=== PATIENT | male | born 1955 | race Caucasian/White ===

== ENCOUNTER 2018-10-15 21:32 | Emergency (ER) | payer BC ==
[~2018-10-15] VITALS: Ht 167.6 cm; Wt 78.0 kg
[2018-10-15] MEDS ORDERED: ZESTORETIC 20-1 EAC3 PO (22:32)
[2018-10-15] MEDS ORDERED: LAMICTAL100 MG PO (22:33)
[2018-10-15] MEDS ORDERED: ARIPIPRAZOLE2 MG PO (22:34)
[2018-10-15] MEDS ORDERED: FLOMAX0.4 MG PO (22:34)
[2018-10-15] MEDS ORDERED: PAXIL10 MG PO (22:34)
[2018-10-15] MEDS ORDERED: AMPHETAMINE-DEXTROAM PO (22:37)
[2018-10-15 22:43] LABS: BASOPHILS 0.4 % (0.0-2.0); HEMATOCRIT 45.5 % (42.0-52.0); HEMOGLOBIN 15.2 gm/dL (14.0-18.0); MCH 29.4 pg (26.0-34.0); MCHC 33.5 g/dL (28.0-37.0); MCV 87.7 fL (80.0-100.0); MONOCYTES 7.9 % (1.0-8.0); PLATELET COUNT 328 thou/uL (150-400); POLYS 76.7 % (36.0-66.0); RBC 5.19 mil/uL (4.50-6.00); RDW 14.4 % (10.5-14.5)
[2018-10-15 22:59] LABS: ANION GAP 12 mmol/L (7-16); BUN 57 mg/dL (7-18); CALCIUM 10.3 mg/dL (8.5-10.1); CHLORIDE 95 mmol/L (98-107); CO2 27 mmol/L (21-32); CREATININE 4.3 mg/dL (0.7-1.3); GLUCOSE 98 mg/dL (74-106); POTASSIUM 4.4 mmol/L (3.5-5.1); SODIUM 134 mmol/L (136-145)
[2018-10-15 23:09] LABS: SGOT 18 U/L (15-37); SGPT 30 U/L (30-65); TOTAL BILIRUBIN 0.3 mg/dL (<0.1-1.0); TOTAL PROTEIN 7.8 g/dL (6.4-8.2); TROPONIN-I <0.06 ng/mL (<0.06)
[2018-10-16 00:01] LABS: URINE BILIRUBIN NEGATIVE (Negative); URINE BLOOD TRACE (Negative); URINE CLARITY CLEAR; URINE COLOR YELLOW; URINE GLUCOSE-RANDOM* NEGATIVE (Negative); URINE KETONES NEGATIVE (Negative); URINE LEUKOCYTES-REFLEX TRACE (Negative); URINE NITRITE-REFLEX NEGATIVE (Negative); URINE PROTEIN (DIPSTICK) NEGATIVE (Negative); URINE UROBILINOGEN 0.2 E.U./dl (0.2-1.0)
[2018-10-16 00:08] LABS: AMP/METHAMP POSITIVE (Negative); BARBITURATES Negative (Negative); BENZODIAZEPINES Negative (Negative); COCAINE Negative (Negative); METHADONE Negative (Negative); OPIATES Negative (Negative); PCP Negative (Negative)
[2018-10-16 00:52] VITALS: BP 135/83
--- NOTE | 2018-10-16 08:35 | EKG ---
[place] [address] [facility] [place] [address] ELECTROCARDIOGRAM REPORT Name: DAVID AQUINO [facility] [id number] ������������������ Admission: 10/15/18 ������������������ Attend Phys: Discharge: 10/16/18 ������������������ Date of : 57 Report #: [id number] ����������������������������������������������������������������� [id number] THIS REPORT FOR: //name// [facility] ED Test Date: 2018-10-15 Test Time: 21:45:49 Pat Name: DAVID AQUINO Department: Room: Gender: [employer] Professor: DAPHNE : 1955 Requested By: Lisa Esposito Order Number: [id number] MD: Seth Jiang Measurements Intervals [place] Rate: 114 P: 81 TN: 149 QRS: 68 QRSD: 139 T: 58 QT: 347 QTc: 478 Interpretive Statements Sinus tachycardia Right atrial enlargement Right bundle branch block No previous ECG available for comparison Electronically Signed On 10-16-2018 8:34:48 CDT by Seth Jiang [email or web address] ��������������������������������������������� <ELECTRONICALLY SIGNED> ���������������������������������������� By: Seth Jiang MD ��������������������������������������������� 10/16/18 [id number] MD ANN MARIE Mooney
[2018-10-17] MEDS ORDERED: ADDERALL 30 MG30 MG PO (00:53)
== END 2018-10-16 00:54 | disposition home or self-care (01) ==
LOC: ER 21:32
PROVIDERS: Student in an Organized Health Care Education/Training Program
DX: N17.9 Acute kidney failure, unspecified (principal); R53.83 Other fatigue; F17.210 Nicotine dependence, cigarettes, uncomplicated; I10 Essential (primary) hypertension

== ENCOUNTER 2018-10-16 21:06 | Inpatient (IN) | payer BC ==
[~2018-10-16] VITALS: Ht 167.6 cm; Wt 73.5 kg
--- NOTE | ~2018-10-16 | HC ---
[facility] [place] [address] [place] [address] CONSULTATION Name: DAVID AQUINO Room #: 427-P [facility] IN M.R.#: [id number] Admission: 10/16/18 ������������������ Attend Phys: Coleman Gray MD Discharge: ������������������ Date of : 57 Report #: [id number] THIS REPORT FOR: //name// CC: FAM physician/PCP Coleman Gray DATE OF SERVICE: 10/17/2018 NEPHROLOGY CONSULTATION ATTENDING PHYSICIAN: Dr. Gray. REASON FOR CONSULTATION: Elevated creatinine. HISTORY OF PRESENT ILLNESS: This patient, with a possible history of CKD and hypertension, developed nausea, dizziness, weakness, fatigue and some shortness of air over the last several days. He came to the Emergency Room, had a creatinine of 4.3, then came back with a creatinine of 4.8. He takes Flomax for some history of urinary retention, has felt poorly and has not been eating or drinking well in the last few days. PAST MEDICAL HISTORY: He has a psychiatric disorder, possibly bipolar as well as the hypertension. He has also had atrial fibrillation and has had ablations x 2. HOME MEDICATIONS: Include lisinopril and hydrochlorothiazide 20/12.5 one daily, Lamictal 100 mg at bedtime, aripiprazole 2 mg daily, Flomax 0.4 mg at bedtime, Paxil 30 mg daily, amphetamine and dextroamphetamine combination 30 mg t.i.d. SOCIAL HISTORY: He smokes cigars and also occasionally marijuana. No other drug use. Works at a [employer]. REVIEW OF SYSTEMS: GENERAL: He has been feeling poorly. EYES: His vision is reasonably good. ENT: Hearing okay, swallows okay. Denies mouth sores. ENDOCRINE: No diabetes or thyroid disease. RESPIRATORY: Does get a little short-winded. CARDIAC: No chest pain or angina. He has had previous atrial fibrillation and palpitations. GASTROINTESTINAL: Appetite has been poor, but no nausea, vomiting or diarrhea. GENITOURINARY: Difficulty with urination, ongoing problem, it is better when he takes his Flomax. NEUROLOGIC: He has psychiatric disorder as mentioned and some restlessness and tremor. [facility] [address] [place] [address] CONSULTATION Name: DAVID AQUINO Room #: 427-P [facility] IN .R.#: [id number] Admission: 10/16/18 ������������������ Attend Phys: Coleman Gray MD Discharge: ������������������ Date of : 57 Report #: [id number] PHYSICAL EXAMINATION: GENERAL: This is a restless patient, in no acute distress. SKIN: Unremarkable. SKELETAL: Shows him to be thin. HEENT: Extraocular movements are full. No scleral icterus. Hearing and vision intact. Mucous membranes are slightly dry. NECK: Neck veins are flat. No carotid bruits. CHEST: Clear to auscultation. HEART: Regular. ABDOMEN: Soft. The bladder is felt in the lower abdomen and is distended. NEUROLOGIC: Intact. No peripheral edema. ASSESSMENT: 1. Acute kidney injury. Creatinine is up. I believe this is due to acute on chronic urinary retention, could be due to his prostate. I do not know if he has actually seen a urologist. In any event, catheter will be placed. IV fluids are given. I suspect this will resolve to some degree or possibly not entirely. 2. History of hypertension. Currently, blood pressures are on the low side. Antihypertensives will be held. 3. Psychiatric disorder. For unclear reasons, his psych medications are being held and these likely need to be restarted. 4. History of atrial fibrillation with ablations. ��������������������������������������������� ���������������������������������������� By: ��������������������������������������������� [id number] Lenny Lindsey MD /nt
[~2018-10-16 21:06] MED LIST: AMPHETAMINE-DEXTROAM PO; ARIPIPRAZOLE2 MG PO; FLOMAX0.4 MG PO; LAMICTAL100 MG PO; PAXIL10 MG PO; ZESTORETIC 20-1 EAC3 PO
[2018-10-16 21:09] VITALS: BP 94/65
[2018-10-16 21:40] LABS: ABSOLUTE NEUTROPHILS 7.5 thou/uL (1.4-8.2); BASOPHILS 0.8 % (0.0-2.0); EOSINOPHILS 1.6 % (0.0-3.0); HEMATOCRIT 44.4 % (42.0-52.0); HEMOGLOBIN 15.4 gm/dL (14.0-18.0); LYMPHOCYTES 19.3 % (24.0-44.0); MCH 30.2 pg (26.0-34.0); MCHC 34.6 g/dL (28.0-37.0); MCV 87.4 fL (80.0-100.0); MONOCYTES 7.1 % (1.0-8.0); PLATELET COUNT 287 thou/uL (150-400); POLYS 71.2 % (36.0-66.0); RBC 5.09 mil/uL (4.50-6.00); RDW 14.6 % (10.5-14.5); WBC 10.6 thou/uL (4.0-11.0)
[2018-10-16 21:42] LABS: CALCIUM 10.5 mg/dL (8.5-10.1); CREATININE 4.8 mg/dL (0.7-1.3); POTASSIUM 4.7 mmol/L (3.5-5.1)
[2018-10-16 22:50] LABS: URINE BILIRUBIN NEGATIVE (Negative); URINE BLOOD NEGATIVE (Negative); URINE CLARITY CLEAR; URINE COLOR YELLOW; URINE GLUCOSE-RANDOM* NEGATIVE (Negative); URINE KETONES NEGATIVE (Negative); URINE LEUKOCYTES-REFLEX TRACE (Negative); URINE NITRITE-REFLEX NEGATIVE (Negative); URINE PROTEIN (DIPSTICK) NEGATIVE (Negative); URINE SPECIFIC GRAVITY 1.015 (1.005-1.035); URINE UROBILINOGEN 0.2 E.U./dl (0.2-1.0)
[2018-10-17 00:01] LABS: URINE CREATININE-RANDOM* 77.7 mg/dL
[2018-10-17 00:12] VITALS: BP 121/69
[2018-10-17 00:21] VITALS: BP 109/75
[2018-10-17] MEDS ORDERED: ADDERALL 30 MG30 MG PO (00:53)
--- NOTE | 2018-10-17 02:11 | NUR ---
PT ADMITTED INTO ROOM 427 AT AROUND MIDNIGHT. PT ALERT AND ORIENTED. UP AD CHARO IN ROOM.DENIES PAIN. VOIDS PER URINAL.AFEBRILE. GOOD APPETITE. PT IS STEADY ON FEET, SO NOT FALL RISK. FALL EDUACTION PROVIDED.CONT OF BOWEL AND BLADDER. VOIDED X 1 SO FAR. CLR YELLOW URINE. URINE SAMPLE COLLECTED PER ORDERS.PT ATE A BOXED DINNER.SKIN INTACT. IV FLUIDS STARTED. NO FURTHER CONCERNS.CALL LIGHT WITHIN REACH.
[2018-10-17 05:27] LABS: HEMATOCRIT 40.2 % (42.0-52.0); HEMOGLOBIN 13.6 gm/dL (14.0-18.0); MCH 29.5 pg (26.0-34.0); MCHC 33.8 g/dL (28.0-37.0); MCV 87.2 fL (80.0-100.0); RBC 4.61 mil/uL (4.50-6.00); RDW 14.2 % (10.5-14.5); WBC 7.1 thou/uL (4.0-11.0)
[2018-10-17 05:40] LABS: ALBUMIN 3.2 g/dL (3.4-5.0); CALCIUM 8.7 mg/dL (8.5-10.1); POTASSIUM 4.5 mmol/L (3.5-5.1); TOTAL BILIRUBIN 0.2 mg/dL (<0.1-1.0); TOTAL PROTEIN 6.2 g/dL (6.4-8.2)
[2018-10-17 05:50] LABS: CREATININE 3.7 mg/dL (0.7-1.3)
--- NOTE | 2018-10-17 12:50 | NUR ---
ASSESSMENT-PT LIVES AT HOME WITH HIS . HE WALKS ON HIS OWN AND DOES HIS OWN ADLS. PT CURRENTLY NOT WANTING TO TALK MUCH AND DENIES ANY DC NEEDS AT THIS TIME. CASE DISCUSSED WITH NURSING AND NO DC NEEDS ANTICIPATED. FOLLOWING TO ASSIST WITH DC PLANNING.
--- NOTE | 2018-10-17 17:55 | NUR ---
ASSUMED CARE AT 0700, SHIFT ASSESMENT DONE, MEDS GIVEN, VSS. CREATININE THIS A MWAS HIGH, DR TORIBIO WAS CONSULTED. DR TORIBIO GAVE ORDER TO INSERT TEJADA. TEJADA WAS INSERTED, BUT PATIENT STARTED FEELING VERY UNCOMFORTABLE, WAS SITTING ON THE COMMODE. DR TORIBIO WAS NOTIFED, ORDER RECEIVED TO DISCONTINUE THE TEJADA AND PERFORM POST VOID SCAN AFTER HE URINATES. PATIENT INFORMED AND EDUCATED TO CALL AFTER EACH VOID. WILL CONTINUE TO ASSESS AND ASSIST WITH ADLs NEEDED.
--- NOTE | 2018-10-17 19:15 | NUR ---
BLADDER SCAN WAS PERFORMED AT 1610, 583 ML WAS RETAINED. ASKED THE PATIENT IF THIS NURSE CAN DO STRAIGHT CATH. PATIENT REFUSED. DR FLORES, TERMITE CONTROL REPRESENTATIVE HEALTHCARE TECHNICIAN NOTIFIED. CALL BACK RECEIVED AND INDICATED WE HAVE TO KEEP ASKING HIM TO GO TO BATHROOM MORE OFTEN AND KEEP ENCOURAGING THE PATIENT TO ALLOW US TO DO STARIGHT CATH. REPORT WILL BE GIVEN TO NIGHT NURSE/
--- NOTE | 2018-10-17 19:25 | NUR ---
PATIENT REFUSED TO TAKE ADDERAL 1700 DOSE. CHILO RN WITNESSED THIS NURSE GETING THE MEDICATION OUT OF THE [facility]. BUT PATIENT REFUSED IT, THIS NURSE WAS TRYING TO RETURN THE MEDICATION, BUT [facility] INDICATED ONLY ONE CAN BE RETURNED. SO PHARMACY WAS NOTIFED, SPOKE TO THE PHARMACIST. EXPERIENCED TRUCK DRIVER DILLON CAME UP, AND SHE ASKED THIS NURSE TO RETURN BOTH THE MEDS EVEN THOUGHT IT WAS INDICATED THAT ONLY ONE PILL CAN BE RETURNED. LEFT A NOT ON THE eMAR, TEXT UNDER THE MED ADMINISTRATION.
[2018-10-17 21:56] VITALS: BP 131/79
[2018-10-17 23:11] LABS: GLYCOHEMOGLOBIN (HGB A1C) 6.2 % (4.8-5.6)
[2018-10-18 06:30] VITALS: BP 136/82
[2018-10-18 07:52] VITALS: BP 145/91
--- NOTE | 2018-10-18 07:57 | NUR ---
PT HAD GOOD URINE OUTPUT THIS SHIFT.UP ADLIB IN ROOM.PT PLEASANT AND COOPERATIVE WITH CARE.IVF ORDERED.PT CONT ON FLOMAX.
--- NOTE | 2018-10-18 13:02 | NUR ---
BLADDER SCAN PER DR PRATER WITH [address] FLORES FOR FURTHER ORDERS.
[2018-10-18 16:00] VITALS: BP 177/87
[2018-10-18 20:46] VITALS: BP 174/90
[2018-10-19 04:14] VITALS: BP 176/94
[2018-10-19 04:44] LABS: ALBUMIN 3.1 g/dL (3.4-5.0); CALCIUM 9.2 mg/dL (8.5-10.1); PHOSPHORUS 2.9 mg/dL (2.5-4.9); POTASSIUM 4.5 mmol/L (3.5-5.1)
[2018-10-19 04:45] LABS: CREATININE 1.7 mg/dL (0.7-1.3)
--- NOTE | 2018-10-19 05:44 | NUR ---
Assumed care of pt at 1900. Pt alert and oriented x4. Up ad nelida. 2600 mL urine output. Post-void bladder scanned after each void. Bladder scan results in mL as follows for shift: 250, 185, 123, 99, 171, 212. Pt blood pressure elevated. Game Programer on duty notified. New orders noted.
[2018-10-19 07:48] VITALS: BP 169/113
[2018-10-19] MEDS ORDERED: METOPROLOL SUCC50 MG PO (12:34)
[2018-10-19] MEDS ORDERED: FLOMAX0.4 MG PO (12:34)
[2018-10-19] MEDS ORDERED: ACETAMINOPHEN325 M1 PO (12:34)
[2018-10-19 12:49] VITALS: BP 169/113
--- NOTE | 2018-10-19 12:57 | NUR ---
PATIENT TO DISCHARGE TO HOME IV ACSESS DCD. ALL BELONGINGS PACKED AND TO BE SENT WITH PATIENT
[2018-10-19 13:32] VITALS: BP 169/113
[2018-10-19 15:51] VITALS: BP 169/113
--- NOTE | 2018-10-19 15:53 | NUR ---
PT DISCHARGED WITH HIS DISCHARGE PAPERS GONE OVER SIGNED AND COPY IN CHART. ALL BELONGINGS PACKED AND SENT WITH PATIENT. PT LEFT IN FAMILY CAR. NO PAIN OR RESP DISTRESS AT DISCHARGE.
== END 2018-10-19 15:45 | disposition home or self-care (01) | DRG 684 ==
LOC: ER 21:06 → 4E 23:41 → EROBS 23:41 → 4E 10-17 00:07
PROVIDERS: Internal Medicine Nephrology; Nurse Practitioner Family; Student in an Organized Health Care Education/Training Program; ADMIT Internal Medicine
DX: N17.9 Acute kidney failure, unspecified (principal); N18.9 Chronic kidney disease, unspecified; I12.9 Hypertensive chronic kidney disease with stage 1 through stage 4 chronic kidney disease, or unspecified chronic kidney disease; N40.1 Benign prostatic hyperplasia with lower urinary tract symptoms; R33.9 Retention of urine, unspecified; N13.30 Unspecified hydronephrosis; F31.9 Bipolar disorder, unspecified; F41.1 Generalized anxiety disorder; I48.91 Unspecified atrial fibrillation; F29 Unspecified psychosis not due to a substance or known physiological condition; F17.210 Nicotine dependence, cigarettes, uncomplicated; F90.9 Attention-deficit hyperactivity disorder, unspecified type; N32.89 Other specified disorders of bladder; Z79.899 Other long term (current) drug therapy; Z71.6 Tobacco abuse counseling
CPT/HCPCS: 10084